=== PATIENT | female | born 1960 | race Caucasian/White ===

== ENCOUNTER → 2017-05-17 | Outpatient (CLI) | payer OTHER ==
[~2017-05-17] MED LIST: ALLERGY MED; ALLO100 PO; AMLO5 PO; Aspir 8181 MG PO; Budeprion Sr150 MG; Calcium 600 +1 EAC1 PO; FISH1000 PO; FLUO10 PO; GABA300 PO; Glucophage1000 MG PO; HYDCHL12.5 PO; Hair, Skin & N1 EACH PO; INDO25; LEVOXYL; LEVSOD100 PO; LEVSOD137 PO; LISI20 PO; LOVA20 PO; LOVA40 PO; METO50ER PO; NIAC500 PO; Nortriptyline H50 MG PO; OMEPRAZOLE MAGN20 MG PO; SERT100 PO; SPIR25 PO; SUCR1 PO; Simvastatin20 MG PO; VITAMIN D32000 UNIT PO; Zantac150 MG PO
== END | disposition home or self-care (01) ==
LOC: PLD 12:44 → LAB SHORT 12:44
DX: N85.8 Other specified noninflammatory disorders of uterus (principal)
CPT/HCPCS: 88305; 88342

== ENCOUNTER 2017-08-22 12:46 | Day surgery (SDC) | payer OTHER ==
[~2017-08-22] VITALS: Ht 162.6 cm; Wt 111.0 kg
[~2017-08-22 12:46] MED LIST changes: -ALLERGY MED; -AMLO5 PO; -Budeprion Sr150 MG; -FLUO10 PO; -HYDCHL12.5 PO; -Hair, Skin & N1 EACH PO; +LOVA40; -LOVA40 PO; +OMEP20ER PO; -OMEPRAZOLE MAGN20 MG PO; +RANI150 PO; -SUCR1 PO; -VITAMIN D32000 UNIT PO; -Zantac150 MG PO
[2017-08-22] MEDS ORDERED: Budeprion Sr150 MG (13:19)
[2017-08-22] MEDS ORDERED: FLUO10 PO (13:19)
[2017-08-22] MEDS ORDERED: AMLO5 PO (13:20)
[2017-08-22] MEDS ORDERED: VITAMIN D32000 UNIT PO (13:20)
== END 2017-08-22 15:10 | disposition home or self-care (01) ==
LOC: ORSCSDS 12:46
PROVIDERS: Obstetrics & Gynecology
PROC: 0UDB8ZX Extraction of Endometrium, Via Natural or Artificial Opening Endoscopic, Diagnostic (ICD-10-PCS; principal; 2017-08-22 14:00)
DX: N94.89 Other specified conditions associated with female genital organs and menstrual cycle (principal); N93.8 Other specified abnormal uterine and vaginal bleeding; D25.9 Leiomyoma of uterus, unspecified; I10 Essential (primary) hypertension; Z95.0 Presence of cardiac pacemaker; G47.33 Obstructive sleep apnea (adult) (pediatric); E03.9 Hypothyroidism, unspecified; E66.01 Morbid (severe) obesity due to excess calories; Z68.41 Body mass index [BMI] 40.0-44.9, adult; Z79.899 Other long term (current) drug therapy; Z79.82 Long term (current) use of aspirin
CPT/HCPCS: 82947; 88305; J2250; J3010; J7120

== ENCOUNTER 2017-10-27 16:07 | Emergency (ER) | payer OTHER ==
[~2017-10-27] VITALS: Ht 162.6 cm; Wt 111.1 kg
[~2017-10-27 16:07] MED LIST changes: +AMLO5 PO; +Budeprion Sr150 MG; +FLUO10 PO; +VITAMIN D32000 UNIT PO
[2017-10-27 17:19] LABS: BASOPHILS PERCENT AUTO 1 % (0-2); EOSINOPHILS ABSOLUTE AUTO 0.19 K/mm3 (0.00-0.68); EOSINOPHILS PERCENT AUTO 2 % (0-6); Hematocrit 39.5 % (33.0-51.0); Hemoglobin 13.1 g/dL (11.5-16.0); IMMATURE GRAN ABSOLUTE AUTO 0.05 K/mm3 (0.00-0.10); IMMATURE GRAN PERCENT AUTO 1 % (0-1); LYMPHOCYTES ABSOLUTE AUTO 2.38 K/mm3 (0.84-5.20); LYMPHOCYTES PERCENT AUTO 29 % (21-46); MONOCYTES ABSOLUTE AUTO 0.73 K/mm3 (0.16-1.47); MONOCYTES PERCENT AUTO 9 % (4-13); Mean Corpuscular HGB 29.6 pg (26.0-34.0); Mean Corpuscular HGB Conc 33.2 g/dL (31.5-36.5); Mean Corpuscular Volume 89 fL (80-100); Mean Platelet Volume 10.2 fL (9.1-12.4); NEUTROPHILS ABSOLUTE AUTO 4.84 K/mm3 (1.96-9.15); NEUTROPHILS PERCENT AUTO 58 % (41-73); Platelet Count 264 K/mm3 (150-400); RDW Coefficient Variation 13.3 % (11.7-14.2); RDW Standard Deviation 43.2 fL (35.1-46.3); Red Blood Cell Count 4.42 M/mm3 (3.80-5.20); White Blood Cell Count 8.29 K/mm3 (4.00-11.30)
[2017-10-27 17:37] LABS: Alanine Aminotransfer (ALT/SGP 55 U/L (12-78); Albumin/Globulin Ratio 1.1 (0.8-1.8); Alk Phos 100 U/L (50-136); Anion Gap 10 mmol/L (6-16); Aspartate Aminotrans (AST/SGOT 32 U/L (12-37); Bilirubin, Total 0.4 mg/dL (0.1-1.0); Blood Urea Nitrogen 14 mg/dL (8-24); Bun/Creatinine Ratio 20.4 (12.0-20.0); CO2, Blood 26 mmol/L (21-32); Calcium, Blood 9.6 mg/dL (8.5-10.1); Chloride, Blood 103 mmol/L (98-108); Creatinine, Blood 0.69 mg/dL (0.40-1.00); Globulin, Blood 3.6 g/dL (2.2-4.0); Glomerular Filtration Rate >60 (60-); Glucose, Blood 148 mg/dL (70-99); Sodium, Blood 139 mmol/L (136-145); Total Protein, Blood 7.6 g/dL (6.4-8.2); Troponin I <0.015 ng/mL (0.000-0.040)
[2017-10-27] MEDS ORDERED: Hair, Skin & N1 EACH PO (18:29)
[2017-10-27] MEDS ORDERED: ALLERGY MED (18:30)
[2017-10-27] MEDS ORDERED: SUCR1 PO (19:58)
== END 2017-10-27 20:22 | disposition home or self-care (01) ==
LOC: ER 16:07
PROVIDERS: Internal Medicine
DX: K21.9 Gastro-esophageal reflux disease without esophagitis (principal); K22.4 Dyskinesia of esophagus; Z88.2 Allergy status to sulfonamides; Z88.8 Allergy status to other drugs, medicaments and biological substances; Z79.899 Other long term (current) drug therapy; Z79.84 Long term (current) use of oral hypoglycemic drugs; Z79.82 Long term (current) use of aspirin; E11.9 Type 2 diabetes mellitus without complications; F32.9 Major depressive disorder, single episode, unspecified; I10 Essential (primary) hypertension; F41.9 Anxiety disorder, unspecified
CPT/HCPCS: 36415; 80053; 84484; 85025; 93005; 93010; 99283

== ENCOUNTER 2018-05-01 07:34 | Day surgery (SDC) | payer OTHER ==
[~2018-05-01 07:34] MED LIST changes: +ALLERGY MED; +HYDCHL12.5 PO; +Hair, Skin & N1 EACH PO; -LOVA40; +LOVA40 PO; -OMEP20ER PO; +OMEPRAZOLE MAGN20 MG PO; -RANI150 PO; +SUCR1 PO; +Zantac150 MG PO
--- NOTE | 2018-05-01 08:40 | NUR ---
REVIEWED PRE-CT ANGIO QUESTIONARE AND ALLERGIES WITH PT. IV STARTED TO LEFT AC UTILIZING ULTRASOUND. PT HR 80'S-SEE FLOWSHEET.
--- NOTE | 2018-05-01 08:45 | NUR ---
HR CONTINUES TO TREND IN THE 80'S. FIRST DOSE OF METOPROLOL 5 MG IVP GIVEN. SEE EMAR AND FLOWSHEET FOR FREQUENT VS.
--- NOTE | 2018-05-01 08:50 | NUR ---
HR CONTINUES TO TREND IN THE 70-80'S. METOPROLOL 5 MG IVP GIVEN. SEE EMAR.
--- NOTE | 2018-05-01 08:55 | NUR ---
HR TRENDING IN THE 70'S-METOPROLOL 5 MG IVP GIVEN-SEE EMAR.
--- NOTE | 2018-05-01 09:10 | NUR ---
MESSAGE LEFT WITH YURI FROM OFFICE REGARDING THE FACT THAT PT HR REMAINS IN THE 70'S DESPITE 3 DOSES OF METOPROLOL 5 MG IVP. ABRIL IN CT ALSO NOTIFIED. DR. KEYS TO RETURN CALL SOON AVAILABLE.
--- NOTE | 2018-05-01 10:33 | NUR ---
DR. SPRING NOTIFIED THAT PT RECEIVED METOPROLOL 5 MG IVP X 8 DOSES AND THE LOWEST HR NOTED WAS 71. ORDER GIVEN TO GIVE METOPROLOL TARTRATE 50 MG PO X 1, LEAVE IV IN PLACE AND HAVE PT RETURN IN 2 HOUR. HOWEVER, IN SPEAKING WITH CT- RADIOLOGY IS NO LONGER ABLE TO DO PROCEDURE DUE TO SCHEDULING CONFLICT.
--- NOTE | 2018-05-01 10:35 | NUR ---
ATTEMPTED TO NOTIFY DR. SPRING THAT CT IS UNABLE TO DO PROCEDURE DUE TO SCHEDULING CONFLICT. MESSAGE LEFT WITH HIS OFFICE.
--- NOTE | 2018-05-01 10:57 | NUR ---
PT DISCHARGED TO HOME. PT INSTRUCTED TO FOLLOW UP WITH DR. SPRING TO RESCHEDULE PROCEDURE. PT VERBALIZES UNDERSTANDING AND STATES THAT SHE WILL BE AT DR. SPRING OFFICE AT 1430 TODAY HER HAS AN APPOINTMENT.
== END 2018-05-01 10:57 | disposition home or self-care (01) ==
LOC: ORD 07:34 → CT 07:34 → ORD 08:30 → CT 09:00 → ORD 10:57
DX: R07.9 Chest pain, unspecified (principal); E11.9 Type 2 diabetes mellitus without complications; I10 Essential (primary) hypertension; Z79.84 Long term (current) use of oral hypoglycemic drugs

== ENCOUNTER 2018-06-29 08:00 | Day surgery (SDC) | payer OTHER ==
[~2018-06-29] VITALS: Ht 162.6 cm; Wt 104.3 kg
--- NOTE | 2018-06-29 10:00 | NUR ---
"DAY SURGERY RN | CALL TO DR. LEE AND DR. CARSON TO SEE PATIENT This RN called Dr. Esquivel' answering service since heart rate still above ordered rate. Service informed this RN that Dr. Esquivel out sick today and that Dr. Lee would be able to be paged regarding this issue. At the same time, Dr. Carson came to see patient and wanted the casting and locker room servicer to call him to figure out a plan. This RN called the paging number for Dr. Lee and directed the call to Dr. Carson. Awaiting confirmation of go ahead or not of procedure. Pt VSS. A/O. Denies dizziness. HR still in 70's. BP stable."
--- NOTE | 2018-06-29 10:49 | NUR ---
"Day surgery RN | Study commencing Patient was given 2 mg of cardizem IVP by Abel SIERRA who covered this RN for break. This brought down HR to acceptable level per radiographer. No issues, pressures good and other VSS. A/O. Denies dizziness."
--- NOTE | 2018-06-29 10:57 | NUR ---
"DAY SURGERY RN | NITRO GIVEN SUBLINGUIAL PER WRITTEN ORDERS This RN gave patient 0.4 mg SL nitro per orders. VSS. A/O."
--- NOTE | 2018-06-29 11:11 | NUR ---
"DAY SURGERY RN | PATIENT IN STEPDOWN PATIENT STABLE AND IN STEPDOWN. VSS. A/O. DENIES NAUSEA, DIZZINESS AND PAIN. NO ISSUES IN PROCEDURE."
--- NOTE | 2018-06-29 11:32 | NUR ---
"DAY SURGERY RN | PT DISCHARGE Patient walked to waiting area where was waiting to drive her home. VSS. A/O. No issues in stepdown. Denies nausea, pain, and dizziness. IV removed. Patient steady on feet."
== END 2018-06-29 12:00 | disposition home or self-care (01) ==
LOC: ORD 08:00 → CT 08:00 → ORD 08:30
DX: I25.10 Atherosclerotic heart disease of native coronary artery without angina pectoris (principal); I42.9 Cardiomyopathy, unspecified; I49.5 Sick sinus syndrome; I10 Essential (primary) hypertension; E11.9 Type 2 diabetes mellitus without complications; E78.5 Hyperlipidemia, unspecified; E03.9 Hypothyroidism, unspecified; G47.33 Obstructive sleep apnea (adult) (pediatric); Z88.1 Allergy status to other antibiotic agents; Z88.8 Allergy status to other drugs, medicaments and biological substances; Z79.899 Other long term (current) drug therapy; Z79.82 Long term (current) use of aspirin; Z79.84 Long term (current) use of oral hypoglycemic drugs; Z95.0 Presence of cardiac pacemaker
CPT/HCPCS: 75574; Q9967

== ENCOUNTER → 2019-07-27 | Outpatient (CLI) | payer OTHER ==
[2019-07-30 14:53] LABS: Adenovirus F 40/41 Not Detected (NOT DETECT); Astrovirus Not Detected (NOT DETECT); Campylobacter Sp Not Detected (NOT DETECT); Cryptosporidium Not Detected (NOT DETECT); Cyclospora Cayetanensis Not Detected (NOT DETECT); E. Coli O157 Not Detected (NOT DETECT); Entamoeba Histolytica Not Detected (NOT DETECT); Enteroaggregative E. coli-EAEC Not Detected (NOT DETECT); Enteropathogenic E. coli-EPEC Not Detected (NOT DETECT); Enterotoxigenic E. coli-ETEC Not Detected (NOT DETECT); Giardia Lamblia Not Detected (NOT DETECT); Norovirus GI/GII Not Detected (NOT DETECT); Plesiomonas Shigelloides Not Detected (NOT DETECT); Rotavirus A Not Detected (NOT DETECT); Salmonella Sp Not Detected (NOT DETECT); Sapovirus Not Detected (NOT DETECT); Shiga Toxin-prod E. coli-STEC Not Detected (NOT DETECT); Shigella/Enteroin E. coli-EIEC Not Detected (NOT DETECT); Vibrio Cholerae Not Detected (NOT DETECT); Vibrio Sp Not Detected (NOT DETECT); Yersinia Enterocolitica Not Detected (NOT DETECT)
== END | disposition home or self-care (01) ==
LOC: LAB SHORT 12:05 → LAB 12:05 → LAB FUT 07-25 17:50
PROVIDERS: Nurse Practitioner Family
DX: R19.7 Diarrhea, unspecified (principal)
CPT/HCPCS: 0097U

== ENCOUNTER 2020-11-13 21:22 | Emergency (ER) | payer OTHER ==
[~2020-11-13] VITALS: Ht 160 cm; Wt 104.3 kg
== END 2020-11-13 23:02 | disposition home or self-care (01) ==
LOC: ER 21:22
DX: T16.2XXA Foreign body in left ear, initial encounter (principal); Z88.2 Allergy status to sulfonamides; Z88.8 Allergy status to other drugs, medicaments and biological substances; Z79.899 Other long term (current) drug therapy
CPT/HCPCS: 69200; 99282-25

== ENCOUNTER → 2021-02-04 | Outpatient (CLI) | payer OTHER | LOC: LAB SHORT 18:04 → LAB 18:04 | DX: R44.1 Visual hallucinations (principal) | CPT/HCPCS: 87086 ==

== ENCOUNTER 2022-08-17 00:06 | Emergency (ER) | payer OTHER ==
[~2022-08-17] VITALS: Ht 162.6 cm; Wt 104.3 kg
[2022-08-17 00:12] VITALS: BP 164/82
== END 2022-08-17 01:44 | disposition home or self-care (01) ==
LOC: ER 00:06
DX: S93.115A Dislocation of interphalangeal joint of left lesser toe(s), initial encounter (principal); W19.XXXA Unspecified fall, initial encounter; Z88.2 Allergy status to sulfonamides; Z88.8 Allergy status to other drugs, medicaments and biological substances; Z88.1 Allergy status to other antibiotic agents; Z79.899 Other long term (current) drug therapy; Z79.82 Long term (current) use of aspirin; E11.9 Type 2 diabetes mellitus without complications; G47.30 Sleep apnea, unspecified
CPT/HCPCS: 28660; 73660; 99283-25